=== PATIENT | female | born 1975 | race Caucasian/White ===

== ENCOUNTER → 2017-09-12 | Outpatient (CLI) | payer BC | LOC: MC.RAD 10:38 | DX: Z12.31 Encounter for screening mammogram for malignant neoplasm of breast (principal) ==

== ENCOUNTER → 2018-11-11 | Outpatient (CLI) | payer BC | LOC: MC.RAD 11:20 | DX: Z12.31 Encounter for screening mammogram for malignant neoplasm of breast (principal) ==

== ENCOUNTER → 2021-05-26 | Outpatient (CLI) | payer BC | LOC: MC.RAD 08:28 | DX: Z12.31 Encounter for screening mammogram for malignant neoplasm of breast (principal); E89.41 Symptomatic postprocedural ovarian failure; I10 Essential (primary) hypertension; R68.82 Decreased libido; E34.9 Endocrine disorder, unspecified; R53.83 Other fatigue ==

== ENCOUNTER → 2023-03-26 | Outpatient (CLI) | payer BC | LOC: MC.RAD 10:54 | DX: Z12.31 Encounter for screening mammogram for malignant neoplasm of breast (principal) ==